=== PATIENT | female | born 1980 | race Asian ===

== ENCOUNTER 2020-05-12 12:58 | Outpatient (CLI) | payer BC, SELFPAY ==
--- NOTE | ~2020-05-12 | MM_ITS ---
EXAMINATION: MM scrn shen implant BI w balbir HISTORY: Screening mammogram TECHNIQUE: Craniocaudal and mediolateral oblique 3-D tomosynthesis images with implant displacement a nd synthetic 2-D images were generated. Craniocaudal and mediolateral oblique views of the breasts wi thout implant displacement were obtained using full field digital mammography. CAD analysis was submi tted and interpreted. COMPARISON: No prior mammogram is available for comparison at this institution. BREAST PARENCHYMAL COMPOSITION: The breasts are extremely dense, which lowers the sensitivity of mamm ography. FINDINGS: There is a focal asymmetry superiorly in the right breast on MLO implant displaced view. Th ere is no mammographic evidence for malignancy in the left breast. IMPRESSION: 1. Focal asymmetry superiorly in the right breast on MLO implant displaced view. 2. Additional mammographic views and possible breast ultrasound are recommended. BI-RADS Category 0: Incomplete: Needs additional imaging evaluation. Reviewed, dictated and finalized at location A. NEL WORKER IMPRESSION: 1. Focal asymmetry superiorly in the right breast on MLO implant displaced view . 2. Additional mammographic views and possible breast ultrasound are recommended . BI-RADS Category 0: Incomplete: Needs additional imaging evaluation.
== END 2020-05-12 12:59 | disposition home or self-care (01) ==
LOC: ANHIMG 13:01
PROVIDERS: PCP Family Medicine; Visit Provider Surgery Plastic and Reconstructive Surgery
DX: Z12.31 Encounter for screening mammogram for malignant neoplasm of breast (principal); R92.8 Other abnormal and inconclusive findings on diagnostic imaging of breast
CPT/HCPCS: 77063; 77067

== ENCOUNTER 2020-05-15 01:47 | Outpatient (CLI) | payer BC, SELFPAY ==
[2020-05-15 20:08] LABS: SARS-CoV-2 RNA PCR Negative
== END 2020-05-15 01:48 | disposition home or self-care (01) ==
LOC: ANHCOVIDDT 01:47
PROVIDERS: PCP Family Medicine; Visit Provider Surgery Plastic and Reconstructive Surgery
DX: Z01.812 Encounter for preprocedural laboratory examination (principal); Z20.822 Contact with and (suspected) exposure to COVID-19
CPT/HCPCS: C9803; U0003

== ENCOUNTER 2020-05-18 01:32 | Day surgery (SDC) | payer OTHER, SELFPAY ==
[2020-05-10 14:12] VITALS: BMI 25.0
[2020-05-18] VITALS (10 sets, daily range): BP systolic 103–124; BP diastolic 51–73; PULSE 48–64; RESP 10–20; TEMP 36.3–36.7; O2SAT 100; BMI 24.3
--- NOTE | 2020-05-18 07:50 | WPDANESEPPF ---
Anes - Initial Pre Proc Eval Procedure: Operation Date: 05/18/20 11:30 Proposed Procedures p Bilateral Breast Implant Exchange - August Ashford MD Date/Time: 05/18/20 07:50 Surgeon: August Ashford MD Pre Op Diagnosis: Hx Breast Implants Patient Data Age: 39 Gender: F Height: 5 ft 4 in Weight: 66 kg Allergies Allergy/AdvReac Type Severity Reaction Status Date / Time No Known Allergies Allergy Unknown Verified 05/18/20 10:04 Home Medications Medication Instructions Recorded Confirmed Type ascorbic acid (vitamin C) 500 mg 1,000 mg PO DAILY 03/24/20 05/18/20 History capsule vitamin 1 tablet PO DAILY 03/24/20 05/18/20 History no.76-iron,carbonyl 29 mg iron-folic acid 1 mg tablet taurine 1,000 mg capsule 1,000 mg PO DAILY 03/24/20 05/18/20 History turmeric 400 mg capsule 400 mg PO DAILY 03/24/20 05/18/20 History docusate sodium 100 mg capsule 100 mg PO DAILY #14 cap 05/04/20 05/18/20 Rx ondansetron HCl 4 mg tablet 4 mg PO Q8H #24 tablet 05/04/20 05/18/20 Rx carisoprodol 350 mg tablet 350 mg PO TID PRN #21 tablet 05/09/20 05/18/20 Rx oxycodone-acetaminophen 5 mg-325 1 tablet PO Q6H PRN #15 tablet 05/09/20 05/18/20 Rx mg tablet amino acids [BCAA] 1 ea PO BID 05/10/20 05/18/20 History cholecalciferol (vitamin D3) 125 mcg PO DAILY 05/10/20 05/18/20 History [Vitamin D3] creatine monohydrate 5,000 mg PO DAILY 05/10/20 05/18/20 History glutamine 4.5 g PO BID 05/10/20 05/18/20 History omega 2-njb-qzm-fish oil [Fish Oil] 1 cap PO DAILY 05/10/20 05/18/20 History pepsin-betaine 1 cap PO TID 05/10/20 05/18/20 History vitamin B complex 1 cap PO DAILY 05/10/20 05/18/20 History Patient hx anesthesia problems: post op nausea/vomiting (will use scopolamine) Family hx anesthesia problems: none PMFSH Past Medical History Medical History Abnormal weight gain Hormone imbalance Screening for lipid disorders Social History Social History Smoking status: Never smoker Second hand tobacco smoke exposure: No Alcohol intake: never Alcohol use details: SOCIALLY IN PAST Substance use: never Living arrangements: with family Additional living arrangements comments: SPOUSE AND 3 CHILDREN Spiritual care concerns: No Anes - Eval Final PreProcedure Day of Procedure 05/18/20 07:50 Patient weight: normal Heart: regular rate and rhythm Lungs: clear to auscultation Airway: Mallampati scale class II Neurological: alert and oriented Last oral intake: >/= 8 hours ASA classification: II Emergent: no Anesthetic plan: proceed Anesthesia type and monitoring: general LMA and standard monitoring Informed Consent: The patient's anesthetic plan and its attendant risks and benefits were discussed with the patient/family/POA. Questions were solicited and answers provided to the satisfaction of the patient/family/POA.
--- NOTE | 2020-05-18 09:48 | SUR.PREOP ---
EXPECTED PT AT 0930. PT HAS NOT ARRIVED YET. MESSAGE LEFT ON PT'S VOICEMAIL
[2020-05-18] MEDS: LACTATED RINGERS 1,000 ML 30 ML IV CONT ×2 (10:24→14:06)
[2020-05-18] MEDS: SCOPOLAMINE 1.5 MG PATCH TRANSDERM (11:06)
--- NOTE | 2020-05-18 11:32 | WPDHPUPDATE1 ---
History and Physical Update Update Date/Time: 05/18/20 11:32 History and Physical has been reviewed, including an updated exam of the patient. There are NO changes in the patient's condition. Risks, benefits, and alternatives have been discussed and questions answered. Patient agrees to proceed with procedure.
--- NOTE | 2020-05-18 11:42 | SUR.PREOP ---
1105: PT NOTIFIED THAT SURGERY IS DELAYED APPROX 30 MINUTES. SHE WILL UPDATE SPOUSE VIA TEXT.
--- NOTE | 2020-05-18 11:46 | P.OP_ITS ---
Procedure Note - Detailed Date of procedure: 05/18/20 Pre-op diagnosis: Hx Breast Implants Post-op diagnosis: same Procedure performed: Bilateral breast implant exchange Description of procedure: Preoperatively the risks, benefits, alternatives were discussed in extensive detail. I want her to be realistic about the risks involved as well as expectations. Discussed what I can and cannot accomplish. Made sure answered all of her questions to her satisfaction. Consent obtained. She was taken to the operating room placed supine on the operating room table. Anesthesia was provided by anesthesiology and prepped and draped in a standard sterile fashion. Surgical time-out was taken. Tegaderm nipple Virk were placed. Fifteen blade used to excise the previous IMF scar. Dissection was continued down until the capsule was identified and incised. I removed the previous implant. There was no worrisome features about the capsule. No evidence of seroma on either side. I then incised the capsule as necessary with capsulotomy for future implant. I irrigated with 3 L saline on TUR tubing. I verified strict hemostasis. I then irrigated with triple antibiotic Betadine solution. Wash my gloves. Using a no-touch technique a Jara funnel the new implant was introduced into the pocket. I closed using 2-0 Vicryl followed by 3-0 Monocryl in a running subcuticular 4-0 Monocryl. Finally tissue glue. Fluffs and a surgical bra were placed. She was woken taken the PACU without difficulty. All instrument sponge counts were correct at the end of the case. Anesthesia: GLMA Surgeon: August Ashford MD Estimated blood loss (mL): 10 Drains: No Packing: No Pathology: none sent Complications: No immediate complications Condition: stable Disposition: PACU Findings: Previous implants smooth, no evidence of rupture. No seroma. No worrisome features. I replaced in the same pocket bilateral Natrelle Inspira SoftTouch 580cc silicon e implants. Right: REF SSX-580 SN [id number] Left: REF SSX-580 SN [id number]
[2020-05-18] MEDS: ceFAZolin 2 GM/D5W 50 ML 2 GM/50 ML BAG IVPB (12:16)
[2020-05-18] MEDS: LIDO 1%/EPINEPHRINE 1:100,000 50 ML VIAL 30 ML INFILTRATE (13:02)
--- NOTE | 2020-05-18 16:24 | SUR.OPER ---
Patient request Implants/sent to [facility] for terminal cleaning/returned in container with patient Id Label on and given to Dr Ashford to take to office. Aware patient requests removed implants. Late Entry Heather Harris RN
== END 2020-05-18 16:02 | disposition home or self-care (01) ==
PROVIDERS: PCP Family Medicine; Visit Provider Surgery Plastic and Reconstructive Surgery
PROC: (CPT 19342; principal; 2020-05-18 11:30)
DX: Z41.1 Encounter for cosmetic surgery (principal)
CPT/HCPCS: 19328; 19325; A9270; J0690; J1100; J1170; J1580; J2250; J2405; J2704; J3010; J7120

== ENCOUNTER 2020-07-05 15:00 | Outpatient (CLI) | payer BC, SELFPAY | END 2020-07-05 15:01 | disposition home or self-care (01) | LOC: ANHLAB 15:02 | PROVIDERS: PCP Family Medicine; Visit Provider Urology | DX: N39.3 Stress incontinence (female) (male) (principal); Z01.812 Encounter for preprocedural laboratory examination | CPT/HCPCS: 87077; 87086; 87088 ==

== ENCOUNTER → 2020-07-06 02:38 | Outpatient (CLI) | payer BC, SELFPAY ==
[2020-07-06 20:35] LABS: SARS-CoV-2 RNA PCR Negative
== END ==
PROVIDERS: Family Provider Family Medicine; PCP Family Medicine; Visit Provider Urology
DX: Z01.812 Encounter for preprocedural laboratory examination (principal); Z20.822 Contact with and (suspected) exposure to COVID-19
CPT/HCPCS: C9803; U0003; U0005

== ENCOUNTER 2020-07-09 00:49 | Day surgery (SDC) | payer BC, SELFPAY ==
--- NOTE | 2020-07-03 09:05 | PM.IMHP ---
H&P: HPI History of Present Illness Date/Time: 07/03/20 09:05 Chief Complaint: BEATRICE Narrative: Jennifer Delarosa is a 39 year old female with BEATRICE Review of Systems Review of Systems: All systems reviewed & are unremarkable except as noted in HPI and below PMFSH Past Medical History Medical History Abnormal weight gain Hormone imbalance Screening for lipid disorders Social History Social History Smoking status: Never smoker Second hand tobacco smoke exposure: No Alcohol intake: never Substance use: never Additional living arrangements comments: SPOUSE AND 3 CHILDREN Spiritual care concerns: No Meds Home Medications and Allergies Home Medications Medication Instructions Recorded Confirmed Type ascorbic acid (vitamin C) 500 mg 1,000 mg PO DAILY 03/24/20 05/18/20 History capsule vitamin 1 tablet PO DAILY 03/24/20 05/18/20 History no.76-iron,carbonyl 29 mg iron-folic acid 1 mg tablet taurine 1,000 mg capsule 1,000 mg PO DAILY 03/24/20 05/18/20 History turmeric 400 mg capsule 400 mg PO DAILY 03/24/20 05/18/20 History docusate sodium 100 mg capsule 100 mg PO DAILY #14 cap 05/04/20 05/18/20 Rx ondansetron HCl 4 mg tablet 4 mg PO Q8H #24 tablet 05/04/20 05/18/20 Rx carisoprodol 350 mg tablet 350 mg PO TID PRN #21 tablet 05/09/20 05/18/20 Rx oxycodone-acetaminophen 5 mg-325 1 tablet PO Q6H PRN #15 tablet 05/09/20 05/18/20 Rx mg tablet amino acids 1 ea PO BID 05/10/20 05/18/20 History cholecalciferol (vitamin D3) 125 mcg PO DAILY 05/10/20 05/18/20 History [Vitamin D3] creatine monohydrate 5,000 mg PO DAILY 05/10/20 05/18/20 History glutamine 4.5 g PO BID 05/10/20 05/18/20 History omega 4-prl-gmp-fish oil [Fish Oil] 1 cap PO DAILY 05/10/20 05/18/20 History pepsin-betaine 1 cap PO TID 05/10/20 05/18/20 History vitamin B complex 1 cap PO DAILY 05/10/20 05/18/20 History Allergies Allergy/AdvReac Type Severity Reaction Status Date / Time No Known Allergies Allergy Unknown Verified 05/19/20 11:30 Exam Const: General: cooperative and healthy appearing HENMT: Head: normal to inspection Eyes: General: appearance normal, both eyes and all related structures Resp: Effort & Inspection: normal respiratory effort and able to speak in complete sentences : General: Yes no CVA tenderness Skin: General skin exam: normal color and no rashes or lesions noted Extrem: General: normal to inspection Assessment and Plan Assessment and plan (1) BEATRICE (stress urinary incontinence, female): Code(s): N39.3 - Stress incontinence (female) (male) Status: Acute Assessment and Plan: urethral sling
[2020-07-05 13:04] VITALS: BMI 24.9
--- NOTE | 2020-07-08 10:03 | WPDANESEPPF ---
Anes - Initial Pre Proc Eval Procedure: Operation Date: 07/09/20 09:30 Proposed Procedures p Urethral Sling - Lex Ward MD Date/Time: 07/08/20 10:03 Surgeon: Lex Ward MD Pre Op Diagnosis: Stress incon Patient Data Age: 39 Gender: F Height: 1.63 m Weight: 65.9 kg Allergies Allergy/AdvReac Type Severity Reaction Status Date / Time No Known Allergies Allergy Unknown Verified 07/09/20 07:49 Home Medications Medication Instructions Recorded Confirmed Type ascorbic acid (vitamin C) 500 mg 1,000 mg PO DAILY 03/24/20 07/09/20 History capsule vitamin 1 tablet PO DAILY 03/24/20 07/09/20 History no.76-iron,carbonyl 29 mg iron-folic acid 1 mg tablet taurine 1,000 mg capsule 1,000 mg PO DAILY 03/24/20 07/09/20 History turmeric 400 mg capsule 400 mg PO DAILY 03/24/20 07/09/20 History amino acids 1 ea PO BID 05/10/20 07/09/20 History cholecalciferol (vitamin D3) 125 mcg PO DAILY 05/10/20 07/09/20 History [Vitamin D3] creatine monohydrate 5,000 mg PO DAILY 05/10/20 07/09/20 History glutamine 4.5 g PO BID 05/10/20 07/09/20 History omega 9-xef-uwm-fish oil [Fish Oil] 1 cap PO DAILY 05/10/20 07/09/20 History pepsin-betaine 1 cap PO TID 05/10/20 07/09/20 History vitamin B complex 1 cap PO DAILY 05/10/20 07/09/20 History Patient hx anesthesia problems: post op nausea/vomiting Family hx anesthesia problems: none PMFSH Past Medical History Medical History (Updated 07/09/20 @ 07:56 by Ramesh Mcclendon DO) Abnormal weight gain Hormone imbalance Social History Social History Smoking status: Never smoker Second hand tobacco smoke exposure: No Alcohol intake: never Substance use: never Living arrangements: with family Additional living arrangements comments: SPOUSE AND 3 CHILDREN Spiritual care concerns: No Anes - Eval Final PreProcedure Day of Procedure 07/08/20 10:03 Patient weight: normal Heart: regular rate and rhythm Lungs: clear to auscultation and normal air movement Airway: Mallampati scale class II Neurological: alert and oriented Last oral intake: >/= 8 hours ASA classification: II Emergent: no Anesthetic plan: proceed Anesthesia type and monitoring: general GIVS and standard monitoring Informed Consent: The patient's anesthetic plan and its attendant risks and benefits were discussed with the patient/family/POA. Questions were solicited and answers provided to the satisfaction of the patient/family/POA.
--- NOTE | 2020-07-09 07:09 | WPDHPUPDATE1 ---
History and Physical Update Update Date/Time: 07/09/20 07:09 History and Physical has been reviewed, including an updated exam of the patient. There are NO changes in the patient's condition. Risks, benefits, and alternatives have been discussed and questions answered. Patient agrees to proceed with procedure.
[2020-07-09 07:51] VITALS: BP 123/72; PULSE 59; RESP 18; TEMP 36.6; O2SAT 100
[2020-07-09] MEDS: LACTATED RINGERS 1,000 ML 30 ML IV CONT (08:05)
[2020-07-09] MEDS: ceFAZolin 2 GM/D5W 50 ML 2 GM/50 ML BAG IVPB (09:00)
[2020-07-09] MEDS: BUPIVACAINE/EPINEPHRINE 0.25% 50 ML VIAL 20 ML INFILTRATE (09:16)
[2020-07-09 09:32] VITALS: BP 99/56; PULSE 55; RESP 12; O2SAT 100
--- NOTE | 2020-07-09 09:32 | PM.PROC ---
Procedure Note - Detailed Date of procedure: 07/09/20 Pre-op diagnosis: Stress incon Stress urinary incontinence Post-op diagnosis: same Procedure performed: Transobturator Mid-urethral sling Cystoscopy Description of procedure: This is a patient with confirmed stress urinary incontinence. She desires correction. She understands the risks of bleeding, infection, damage to the urinary tract, lack of cure of stress incontinence, recurrence of stress incontinence, postoperative voiding dysfunction including incontinence and retention, need for ancillary procedures to loosen remove the sling, postoperative voiding dysfunction including retention and overactive bladder, hip and leg pain, dyspareunia, mesh related complications including exposure and extrusion. She agrees to proceed. She understands it will not help overactive bladder symptoms if present. She was correctly identified and informed consent obtained. She is brought to the operating room. She was given appropriate anesthesia. She was placed in the dorsal lithotomy position. All pressure points were padded. She was given appropriate perioperative antibiotics and a time-out performed. A Fontenot catheter is placed. I marked out the thigh incisions anesthetize the skin and made those incisions. I anesthetized the anterior vaginal wall over the mid urethra. I made a 1 cm incision. I dissected out laterally taking great care not to injure the urethra or the vaginal wall. Passed the helical trocars 1st on the left and then on the right from the thigh incision towards the vaginal incision. Sling was connected to the trocars and brought out through the thigh incision. I tensioned the sling appropriately. I cut and removed the plastic sheaths. I closed the incision with 2 0 Vicryl. I then performed cystoscopy. There was no surgical artifact or abnormalities inside the bladder. The urethra was normal without surgical artifact. I cut the excess sling material. I closed the incisions with glue. She was awakened and transferred to the PACU in stable condition. Implants: Mid urethral sling Surgeon: Lex Ward MD Drains: No Packing: No Pathology: none sent Complications: No immediate complications Condition: stable Disposition: PACU
[2020-07-09 10:00] VITALS: BP 104/63; PULSE 52; RESP 14
[2020-07-09 10:30] VITALS: BP 109/58; PULSE 48; RESP 14
== END 2020-07-09 10:44 | disposition home or self-care (01) ==
PROVIDERS: Family Provider Family Medicine; PCP Family Medicine; Visit Provider Urology
PROC: (CPT 57288; principal; 2020-07-09 09:30)
DX: N93.9 Abnormal uterine and vaginal bleeding, unspecified (principal); E34.9 Endocrine disorder, unspecified
CPT/HCPCS: 57288; A9270; C1771; J0690; J1100; J2250; J2405; J2704; J3010; J7030; J7120

== ENCOUNTER 2020-07-29 08:31 | Outpatient (CLI) | payer BC, SELFPAY ==
--- NOTE | ~2020-07-29 | XR_ITS ---
EXAMINATION: XR UGIAC w small bowel EXAM DATE: 07/29/2020 09:36 INDICATION: Postprandial bloating, abdominal pain. On diet with multiple small meals a day, about swati ry 3 hours. TECHNIQUE: Elementary Esl Teacher radiograph was acquired. Standard single and double contrast barium upper GI examina tion was performed followed by small bowel series. Spot images of the terminal ileum were acquired. Dose reduction digital pulsed fluoroscopy was used at 4 frames per second with DAP 5.8 Gycm2. A tota l 0.7 minutes fluoroscopy time was used. FINDINGS: There is no esophageal stricture, diverticulum or mass identified. Gastroesophageal juncti on is normal in appearance. Reflux was not demonstrated during this examination. The stomach has a normal appearance without evidence of mass lesion, ulceration or filling defect. T here is normal rugal fold pattern. The duodenum and duodenal sweep are normal in appearance. Ileal and jejunal fold patterns are normal. There is no small bowel wall thickening or mass effect d isplacing small bowel. There are no intraluminal filling defects identified. There is no small gurpreet l dilation. Terminal ileum is normal in appearance. Contrast reached the colon by 30 minutes, juan c l transit time. IMPRESSION: Normal exam. Reviewed, dictated and finalized at location A. IMPRESSION: Normal exam.
== END 2020-07-29 08:32 | disposition home or self-care (01) ==
PROVIDERS: PCP Family Medicine; Visit Provider Family Medicine
DX: R10.84 Generalized abdominal pain (principal)
CPT/HCPCS: 74246; 74248

== ENCOUNTER 2020-08-17 07:36 | Outpatient (CLI) | payer BC, SELFPAY ==
--- NOTE | ~2020-08-17 | NM_ITS ---
EXAM: NM gastric emptying study DATE: 08/17/2020 13:35 INDICATION: Generalized abdominal pain TECHNIQUE: A gastric emptying study was performed using the methodology of Olga NUÑEZ, et al. J Nucl Med 2007; 48:568-572. The patient was given a meal consisting of 2 scrambled eggs labeled with 1 mCi Tc-99m sulfur colloid, 2 slices of toast, two packages of jam, and approximately 120 mL of water. Si multaneous anterior and posterior 1-min images of the abdomen were obtained with the patient supine a t multiple time points over a total period of 4 hours. The geometric mean of anterior and posterior v iews was determined, and the percentage retention was calculated for each time point. COMPARISON: None. FINDINGS: Gastric retention of the radiotracer-labeled meal was 28%, 12%, and 2% at the 1-hour, 2-hour, and 4-h our time points, respectively. With this technique, apparent rapid gastric emptying is suggested by < 30% gastric retention at 1 hour. Delayed gastric emptying is defined by gastric retention of >90% at 1 hour, >60% retention at 2 hours, or >10% retention at 4 hours. IMPRESSION: 1. Borderline rapid gastric emptying. Reviewed, dictated and finalized at location B.
== END 2020-08-17 07:37 | disposition home or self-care (01) ==
PROVIDERS: PCP Family Medicine; Visit Provider Family Medicine
DX: R10.84 Generalized abdominal pain (principal)
CPT/HCPCS: 78264; A9541

== ENCOUNTER → 2020-10-15 02:54 | Outpatient (CLI) | payer BC, SELFPAY ==
[2020-10-15 18:15] LABS: SARS-CoV-2 RNA PCR Negative
== END ==
PROVIDERS: PCP Family Medicine; Visit Provider Internal Medicine Gastroenterology
DX: Z01.812 Encounter for preprocedural laboratory examination (principal); Z20.822 Contact with and (suspected) exposure to COVID-19
CPT/HCPCS: C9803; U0003; U0005

== ENCOUNTER 2020-10-18 01:12 | Day surgery (SDC) | payer BC, SELFPAY ==
[2020-10-13 15:20] VITALS: BMI 25.7
[2020-10-18 10:41] VITALS: BP 108/66; PULSE 75; RESP 16; TEMP 36.6; O2SAT 100; BMI 25.6
--- NOTE | 2020-10-18 10:41 | P.HP_ITS ---
History of Present Illness History of Present Illness Consent: Risks, benefits, and alternatives have been discussed and questions answered. Patient agrees to proceed with procedure. Chief complaint: epigastric Pain Narrative: Jennifer Delarosa is a 39 year old female With suffering from epigastric pain and early satiety with nausea for the past couple of months. Previous investigations, including gastric emptying scan have been normal. For a while she could tolerate small portions of protein, but now even that gives her discomfort. [facility] Past Medical History Medical History Abdominal pain Abnormal weight gain Bloating Hormone imbalance Social History Social History Smoking status: Never smoker Second hand tobacco smoke exposure: No Alcohol intake: never Substance use: never Living arrangements: with family Additional living arrangements comments: SPOUSE AND 3 CHILDREN Spiritual care concerns: No Meds Home Medications and Allergies Home Medications Medication Instructions Recorded Confirmed Type ascorbic acid (vitamin C) 500 mg 1,000 mg PO DAILY 03/24/20 10/18/20 History capsule vitamin 1 tablet PO DAILY 03/24/20 10/18/20 History no.76-iron,carbonyl 29 mg iron-folic acid 1 mg tablet taurine 1,000 mg capsule 1,000 mg PO DAILY 03/24/20 10/18/20 History turmeric 400 mg capsule 400 mg PO DAILY 03/24/20 10/18/20 History amino acids 1 ea PO BID 05/10/20 10/18/20 History cholecalciferol (vitamin D3) 125 mcg PO DAILY 05/10/20 10/18/20 History [Vitamin D3] creatine monohydrate 5,000 mg PO DAILY 05/10/20 10/18/20 History glutamine 4.5 g PO DAILY 05/10/20 10/18/20 History omega 7-xdf-ccu-fish oil [Fish Oil] 1 cap PO DAILY 05/10/20 10/18/20 History pepsin-betaine 1 cap PO TID 05/10/20 10/18/20 History vitamin B complex 1 cap PO DAILY 05/10/20 10/18/20 History oxybutynin chloride 5 mg 5 mg PO DAILY 09/29/20 10/18/20 History tablet,extended release 24 hr Allergies Allergy/AdvReac Type Severity Reaction Status Date / Time No Known Allergies Allergy Unknown Verified 10/18/20 10:18 Exam Const: General: alert Orientation/consciousness: patient oriented x3 Resp: Auscultation: clear to auscultation bilaterally Cardio: Rhythm: regular rhythm GI: GI Palp: Yes Soft to palpation and No Tenderness to palpation present (GI) Neuro: General: patient oriented x3 Assessment and Plan Assessment and plan (1) Epigastric pain: Code(s): R10.13 - Epigastric pain Status: Acute
--- NOTE | 2020-10-18 10:45 | WPDANESEPPF ---
Anes - Initial Pre Proc Eval Procedure: Operation Date: 10/18/20 11:00 Proposed Procedures p Esophagogastroduodenoscopy - Barry Paris MD Date/Time: 10/18/20 10:45 Surgeon: Barry Paris MD Pre Op Diagnosis: epigastric Pain Patient Data Age: 39 Gender: F Height: 1.63 m Weight: 67.8 kg Last Vital Signs Temp 36.6 C 10/18/20 10:41 Pulse 75 10/18/20 10:41 Resp 16 10/18/20 10:41 BP 108/66 10/18/20 10:41 Pulse Ox 100 10/18/20 10:41 Allergies Allergy/AdvReac Type Severity Reaction Status Date / Time No Known Allergies Allergy Unknown Verified 10/18/20 10:18 Home Medications Medication Instructions Recorded Confirmed Type ascorbic acid (vitamin C) 500 mg 1,000 mg PO DAILY 03/24/20 10/18/20 History capsule vitamin 1 tablet PO DAILY 03/24/20 10/18/20 History no.76-iron,carbonyl 29 mg iron-folic acid 1 mg tablet taurine 1,000 mg capsule 1,000 mg PO DAILY 03/24/20 10/18/20 History turmeric 400 mg capsule 400 mg PO DAILY 03/24/20 10/18/20 History amino acids 1 ea PO BID 05/10/20 10/18/20 History cholecalciferol (vitamin D3) 125 mcg PO DAILY 05/10/20 10/18/20 History [Vitamin D3] creatine monohydrate 5,000 mg PO DAILY 05/10/20 10/18/20 History glutamine 4.5 g PO DAILY 05/10/20 10/18/20 History omega 2-eam-jpo-fish oil [Fish Oil] 1 cap PO DAILY 05/10/20 10/18/20 History pepsin-betaine 1 cap PO TID 05/10/20 10/18/20 History vitamin B complex 1 cap PO DAILY 05/10/20 10/18/20 History oxybutynin chloride 5 mg 5 mg PO DAILY 09/29/20 10/18/20 History tablet,extended release 24 hr Patient hx anesthesia problems: none Family hx anesthesia problems: none PMFSH Past Medical History Medical History Abdominal pain Abnormal weight gain Bloating Hormone imbalance Social History Social History Smoking status: Never smoker Second hand tobacco smoke exposure: No Alcohol intake: never Substance use: never Living arrangements: with family Additional living arrangements comments: SPOUSE AND 3 CHILDREN Spiritual care concerns: No Anes - Eval Final PreProcedure Day of Procedure 10/18/20 10:45 Patient weight: normal Heart: regular rate and rhythm Lungs: clear to auscultation and normal air movement Airway: Mallampati scale class II Neurological: alert and oriented Last oral intake: >/= 8 hours ASA classification: I Emergent: no Anesthetic plan: proceed Anesthesia type and monitoring: general GIVS Informed Consent: The patient's anesthetic plan and its attendant risks and benefits were discussed with the patient/family/POA. Questions were solicited and answers provided to the satisfaction of the patient/family/POA.
[2020-10-18] MEDS: LACTATED RINGERS 1,000 ML 150 ML IV CONT (10:58)
[2020-10-18] MEDS: BENZOCAINE (*SP) 60 ML SPRAY CAN (HURRICAINE) 1 SPRAY MUCOUS MEM (11:30)
[2020-10-18 11:42] VITALS: BP 98/53; PULSE 60; RESP 21; O2SAT 97
[2020-10-18 11:52] VITALS: BP 101/60; PULSE 50; RESP 19; O2SAT 100
[2020-10-18 12:02] VITALS: BP 105/55; PULSE 49; RESP 17; O2SAT 100
== END 2020-10-18 12:15 | disposition home or self-care (01) ==
PROVIDERS: PCP Family Medicine; Visit Provider Internal Medicine Gastroenterology
PROC: 0DJ08ZZ Inspection of Upper Intestinal Tract, Via Natural or Artificial Opening Endoscopic (ICD-10-PCS; CPT 43235; principal; 2020-10-18 11:00)
DX: K29.70 Gastritis, unspecified, without bleeding (principal)
CPT/HCPCS: 43239; 87081; 88305; J2704; J7120